=== PATIENT | female | born 1960 | race Caucasian/White ===

== ENCOUNTER 2018-09-30 18:47 | Emergency (ER) | payer MEDICAID, OTHER ==
[~2018-09-30] VITALS: Ht 167.6 cm; Wt 86.2 kg
--- NOTE | 2018-09-30 19:22 | NUR ---
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 PT AAOX4, VSS. PT ALSO C/O DIZZINESS, NAUSEA. RR EVEN & UNLABORED. PT SEEN & EVAL'D BY DR. LAMA. PLACED ON DIRECTOR [facility], SR & WILL CONT TO MONITOR.
[2018-09-30] MEDS ORDERED: MAG HYDROX/AL HYDROX/SIMETH 30 ML UDC ONE (19:38)
[2018-09-30] MEDS ORDERED: KETOROLAC TROMETHAMINE 15 MG/ML VIAL ONE (19:38)
[2018-09-30] MEDS ORDERED: NITROGLYCERIN 0.4 MG/TAB BOTTLE ONE (19:38)
[2018-09-30 19:44] LABS: BASOPHILS # (AUTO) 0.1 /CMM (0.0-0.2); EOSINOPHILS % (AUTO) 4.6 % (0.0-6.0); HEMATOCRIT 35 % (33-45); HEMOGLOBIN 11.1 g/dL (11.5-14.8); LYMPHOCYTES # (AUTO) 3.3 /CMM (0.8-4.8); MEAN CORPUSCULAR HGB CONC 32 g/dl (31.0-36.0); MEAN CORPUSCULAR VOLUME 74 fL (82-100); MONOCYTES # (AUTO) 0.6 /CMM (0.1-1.30); MONOCYTES % (AUTO) 6.1 % (2.0-12.0); NEUTROPHILS # (AUTO) 6.1 /CMM (1.8-8.9); NEUTROPHILS % (AUTO) 57.3 % (43.0-81.0); PLATELET COUNT (AUTO) 502 /CMM (150-450); RED BLOOD CELL COUNT(AUTO) 4.76 MIL/uL (4.0-5.2); WHITE BLOOD COUNT (AUTO) 10.6 K/uL (4.3-11.0)
[2018-09-30] MEDS: NITROGLYCERIN 0.4 MG/TAB BOTTLE SL ONE ×2 (19:45→19:51)
[2018-09-30] MEDS: IV NS 0.9% 500 ML BAG IV ONE (19:52)
[2018-09-30] MEDS: KETOROLAC TROMETHAMINE INJ 30 MG/ML VIAL IV ONE (19:55)
[2018-09-30] MEDS: MAG HYDROX/AL HYDROX/SIMETH 30 ML UDC PO ONE (19:55)
--- NOTE | 2018-09-30 19:57 | NUR ---
MEDICATED PER ERMD ORDER, PT REX WELL. WILL CONT TO MONITOR.
[2018-09-30 20:03] LABS: BILIRUBIN,TOTAL 0.2 mg/dL (0.2-1.0); CALCIUM, SERUM 9.3 mg/dL (8.5-10.1); CARBON DIOXIDE 29 mmol/L (21-32); CHLORIDE 100 mmol/L (98-107); CREATININE 1.2 mg/dL (0.6-1.3); GLUCOSE 108 mg/dL (74-106); POTASSIUM 4.3 mmol/L (3.5-5.1); SODIUM SERUM 138 mmol/L (136-145); UREA NITROGEN, BLOOD 20 mg/dL (7-18)
[2018-09-30 20:04] LABS: ALANINE AMINOTRANSFERASE 58 U/L (12-78); ALBUMIN 3.3 g/dL (3.4-5.0); ALKALINE PHOSPHATASE 171 U/L (46-116); ASPARTATE AMINOTRANSFERASE 29 U/L (15-37); LIPASE 370 U/L (73-393); TOTAL PROTEIN, SERUM 8.3 g/dL (6.4-8.2)
[2018-09-30 20:33] VITALS: BP 145/74
--- NOTE | 2018-09-30 20:34 | NUR ---
PT STILL C/O CP 11/12, DR. LAMA AWARE. DENIES SOB, DIZZINESS, N/V @ THIS TIME & WILL CONT TO MONITOR.
--- NOTE | 2018-09-30 20:47 | NUR ---
REPORT GIVEN TO SHARAD TABARES.
--- NOTE | 2018-09-30 20:50 | NUR ---
PABLO DONALDSON TO [facility] ETA [id number] TRIP #[id number]
--- NOTE | 2018-09-30 22:27 | NUR ---
Patient TRANSFERRED TO [facility] in stable condition. Written and verbal after care instructions given. Patient verbalizes understanding of instruction. IV removed. Catheter intact and site benign. Pressure and 4x4 applied to site. No bleeding noted.
== END 2018-09-30 22:29 ==
LOC: ER 18:49
DX: R07.89 Other chest pain (principal); F32.9 Major depressive disorder, single episode, unspecified; F41.9 Anxiety disorder, unspecified; G43.909 Migraine, unspecified, not intractable, without status migrainosus; I10 Essential (primary) hypertension; I47.1 Supraventricular tachycardia; Z88.8 Allergy status to other drugs, medicaments and biological substances; Z88.9 Allergy status to unspecified drugs, medicaments and biological substances; Z88.1 Allergy status to other antibiotic agents
CPT/HCPCS: 36415; 80048; 80076; 83690; 84484; 85025; 93005; 96374; 99285; J1885; J7040